=== PATIENT | female | born 1970 | race American Indian/Alaskan Native ===

== ENCOUNTER 2016-10-16 07:29 | Day surgery (SDC) | payer OTHER ==
[~2016-10-16] VITALS: Ht 167.6 cm; Wt 93.3 kg
[2016-10-16 07:48] VITALS: BP 110/77
[2016-10-16] MEDS ORDERED: LIDOCAINE 1%, 20ML ONE (08:43)
== END 2016-10-16 13:55 ==
LOC: OUT 07:29
PROVIDERS: ATTEND Registered Nurse
DX: M32.9 Systemic lupus erythematosus, unspecified (principal); Z88.6 Allergy status to analgesic agent; Z88.1 Allergy status to other antibiotic agents; Z88.8 Allergy status to other drugs, medicaments and biological substances; Z79.82 Long term (current) use of aspirin
CPT/HCPCS: 36415; 62270; 82040; 82042; 82784; 83873; 86592; 86645; 86695; 86696; 86762; 86777; 86778; J3490

== ENCOUNTER 2018-12-15 14:05 | Outpatient (CLI) | payer MEDICARE ==
[2018-12-15] MEDS ORDERED: TOPI100C3 PO (15:09)
[2018-12-15] MEDS ORDERED: HYDR200T72 PO (15:09)
[2018-12-15] MEDS ORDERED: ESTR1TAB15 PO (15:09)
[2018-12-15] MEDS ORDERED: DIAZ5TAB PO (15:09)
[2018-12-15] MEDS ORDERED: ESCI20TA10 PO (15:09)
[2018-12-15] MEDS ORDERED: aspirin PO (15:09)
== END 2018-12-15 23:59 | disposition home or self-care (01) ==
LOC: STAR 14:05
PROVIDERS: ATTEND Surgery
DX: Z02.9 Encounter for administrative examinations, unspecified (principal)

== ENCOUNTER 2018-12-23 06:30 | Day surgery (SDC) | payer MEDICARE ==
[2018-12-15 15:10] VITALS: BP 107/75
[~2018-12-23] VITALS: Ht 167.6 cm; Wt 86.9 kg
[~2018-12-23 06:30] MED LIST: DIAZ5TAB PO; ESCI20TA10 PO; ESTR1TAB15 PO; HYDR200T72 PO; TOPI100C3 PO; aspirin PO
[2018-12-23] MEDS ORDERED: LACTATED RINGERS 1,000 ML IV SCH (06:50)
[2018-12-23] MEDS ORDERED: GABAPENTIN 300 MG CAPSULE PO ONE (07:00)
[2018-12-23] MEDS ORDERED: ACETAMINOPHEN 500 MG TABLET PO ONE (07:00)
[2018-12-23] MEDS ORDERED: ONDANSETRON ODT 8 MG PO ONE (07:00)
[2018-12-23 07:06] VITALS: BP 107/75
[2018-12-23] MEDS ORDERED: SCOPOLAMINE PATCH, 1.5MG PATCH.TD72 TD ONE ×2 (07:19→07:30)
[2018-12-23] MEDS ORDERED: MIDAZOLAM 1 MG/ML, 2ML ONE (07:50)
[2018-12-23] MEDS ORDERED: FENTANYL PF 250 MCG/5ML ONE (07:50)
[2018-12-23] MEDS ORDERED: BUPIVACAINE/PF 0.5% ONE (08:15)
[2018-12-23] MEDS ORDERED: ONDANSETRON 2MG/ML, 2ML IV PRN (08:30)
[2018-12-23] MEDS ORDERED: ACETAMINOPHEN 325 MG TABLET PO PRN (08:30)
[2018-12-23] MEDS ORDERED: LORazepam 2 MG/ML, 1ML IVPush PRN (08:30)
[2018-12-23] MEDS ORDERED: PROMETHAZINE 25 MG SUPP PR PRN (08:30)
[2018-12-23] MEDS ORDERED: OXYcodone 5 MG/5 ML ORAL.SOL UDC PO PRN ×2 (08:30→09:30)
[2018-12-23] MEDS ORDERED: HYDROmorphone 2 MG/ML, 1ML IVPush PRN ×2 (08:30→09:30)
[2018-12-23] MEDS ORDERED: MEPERIDINE/PF 25MG/ML,1ML IVPush PRN (08:30)
[2018-12-23] MEDS ORDERED: PROMETHAZINE 25 MG/ML, 1ML IV PRN (08:30)
[2018-12-23] MEDS ORDERED: FENTANYL PF 100 MCG/2ML IV PRN (08:30)
[2018-12-23] MEDS ORDERED: ONDANSETRON ODT 8 MG PO PRN (08:30)
[2018-12-23] MEDS ORDERED: EPINEPHRINE 1 MG/ML, 1ML INFIL ONE (08:55)
[2018-12-23] MEDS ORDERED: PROPOFOL 10 MG/ML, 20ML ONE (09:05)
[2018-12-23] MEDS ORDERED: ONDANSETRON 2MG/ML, 2ML ONE (09:05)
[2018-12-23] MEDS ORDERED: DEXAMETHASONE 4 MG/ML, 1ML ONE (09:05)
[2018-12-23] MEDS ORDERED: CEFAZOLIN 1,000 MG ONE (09:05)
[2018-12-23] MEDS ORDERED: LIDOCAINE-MPF 2% ,5ML ONE (10:28)
[2018-12-23] MEDS ORDERED: EPHEDRINE 50 MG/ML, 1ML ONE (15:33)
== END 2018-12-23 11:25 | disposition home or self-care (01) ==
LOC: OUT 06:30
PROVIDERS: ATTEND Surgery
DX: R22.2 Localized swelling, mass and lump, trunk (principal); D17.1 Benign lipomatous neoplasm of skin and subcutaneous tissue of trunk; M32.9 Systemic lupus erythematosus, unspecified; F41.9 Anxiety disorder, unspecified; F32.9 Major depressive disorder, single episode, unspecified; E78.5 Hyperlipidemia, unspecified; E66.9 Obesity, unspecified; Z68.30 Body mass index [BMI] 30.0-30.9, adult; Z79.82 Long term (current) use of aspirin; Z79.891 Long term (current) use of opiate analgesic; Z79.899 Other long term (current) drug therapy; Z88.0 Allergy status to penicillin; Z88.2 Allergy status to sulfonamides; Z88.5 Allergy status to narcotic agent; Z91.018 Allergy to other foods; Z90.710 Acquired absence of both cervix and uterus; Z90.49 Acquired absence of other specified parts of digestive tract; Z85.42 Personal history of malignant neoplasm of other parts of uterus; Z80.3 Family history of malignant neoplasm of breast; Z80.42 Family history of malignant neoplasm of prostate
CPT/HCPCS: 21556; 88304; J0171; J0690; J1100; J2250; J2704; J3010; J7120; Q0162; 88305; J2405